=== PATIENT | male | born 1985 | race Caucasian/White ===

== ENCOUNTER 2017-09-27 18:12 | Emergency (ER) | payer OTHER, MEDICAID, SELFPAY ==
[2017-09-27 18:15] VITALS: BP 158/96; PULSE 74; RESP 16; TEMP 36.9; O2SAT 100; BMI 20.3
--- NOTE | 2017-09-27 19:37 | ED_ITS ---
HPI - Back Pain/Injury <TODD Morse - Last Filed: 09/27/17 21:55> General Chief Complaint: Back Pain/Injury Stated Complaint: LOWER BACK PAIN, RADIATING DOWN LEGS Time Seen by Provider: 09/27/17 19:19 Source: patient Mode of arrival: ambulatory Limitations: no limitations History of Present Illness HPI Narrative: 32-year-old male here for complaint of having pain into his left lumbar region over the past week. He denies any trauma to the area. He reports that he woke up with the pain 1 day after he went hiking 1 day. He denies any particular incident where he felt the back pain started. He is ambulatory into the emergency room. He denies any loss of bladder or bowel control. He denies any other concerns or complaints at this time. Increased pain with motion of the lower back. Decreased pain with relaxation. He reports that the pain radiates into his left buttocks and left thigh MD Complaint: back pain Related Data Previous Rx's Medication Instructions Recorded azithromycin [Zithromax] 250 mg PO SEE INSTRUCTIONS #6 tab 02/17/16 benzonatate [Tessalon Perles] 100 mg PO BID PRN #20 cap 02/17/16 cyclobenzaprine 10 mg PO TID PRN #15 tab 09/27/17 prednisone 40 mg PO DAILY #8 tab 09/27/17 Allergies Allergy/AdvReac Type Severity Reaction Status Date / Time No Known Drug Allergies Allergy Verified 09/27/17 18:15 Review of Systems <TODD Morse - Last Filed: 09/27/17 21:55> Constitutional Denies chills, Denies fever(s), Denies lethargy and Denies weakness Eyes Denies change in vision, Denies eye discharge, Denies irritation and Denies loss of vision ENT Ears, Nose, Mouth, and Throat: Denies change in voice, Denies neck pain and Denies sore throat Cardiovascular Denies chest pain, Denies irregular heart rhythm, Denies lightheadedness, Denies palpitations, Denies dyspnea, Denies dyspnea on exertion and Denies orthopnea Respiratory Denies cough, Denies dyspnea, Denies dyspnea on exertion and Denies wheezing Genitourinary Denies hematuria, Denies flank pain, Denies urinary incontinence and Denies urinary urgency Musculoskeletal Denies neck pain Comments: Lower back pain Integumentary/Breasts Denies pruritus, Denies erythema, Denies rash and Denies wounds Neurologic Denies confusion, Denies loss of vision and Denies weakness Psychiatric Denies anxiety, Denies confusion, Denies depression, Denies homicidal ideation and Denies suicidal ideation Endocrine Denies palpitations Hematologic/Lymphatic Denies easy bruising Allergic/Immunologic Denies wheezing Exam <TODD Morse - Last Filed: 09/27/17 21:55> Initial Vital Signs Initial Vital Signs: Vital Signs Temperature 98.4 F 09/27/17 18:15 Pulse Rate 74 09/27/17 18:15 Respiratory Rate 16 09/27/17 18:15 Blood Pressure 158/96 H 09/27/17 18:15 Pulse Oximetry 100 09/27/17 18:15 Const General: cooperative and well developed Nutritional Appearance: well nourished Orientation: alert, awake, oriented x3 and not confused HENMT Mouth: oral mucosae normal and moist mucous membranes Eyes Conjunctivae: conjunctivae normal Sclera: sclerae normal Pupils: PERRL EOM: EOM intact bilaterally Resp Effort & Inspection: normal respiratory effort, able to speak in complete sentences, no respiratory distress and no use of accessory muscles Auscultation: clear to auscultation bilaterally, no rales, no rhonchi and no wheezes Cardio Rate: regular rate Rhythm: regular rhythm Heart Sounds: no click, no gallops, no murmurs and no rubs Pulses: normal peripheral pulses Back/Spine/Pelvis Other: Tenderness to the paraspinals of the lumbar spine with muscle spasm. Pain radiates into the left buttocks. Distal sensation is intact. Distal range of motion is intact. Distal pulses are intact. Skin General: no rashes or lesions noted, No jaundice and No petechiae Neuro General: alert, oriented x3, gait normal and no focal motor deficits Speech: speech normal Motor: muscle tone normal throughout Sensory Exam: no sensory deficits noted <Nathan Soni DO - Last Filed: 09/27/17 22:16> Initial Vital Signs Initial Vital Signs: Vital Signs Temperature 98.4 F 09/27/17 18:15 Pulse Rate 74 18 18:15 Respiratory Rate 16 09/27/17 18:15 Blood Pressure 158/96 H 09/27/17 18:15 Pulse Oximetry 100 09/27/17 18:15 Course <Naveed FisherTODD - Last Filed: 09/27/17 21:55> Vital Signs - 8 hr 09/27/17 18:15 Temperature 98.4 F Pulse Rate 74 Respiratory Rate 16 Blood Pressure 158/96 H Pulse Oximetry 100 <Nathan Soni - Last Filed: 09/27/17 22:16> Vital Signs - 8 hr 09/27/17 18:15 Temperature 98.4 F Pulse Rate 74 Respiratory Rate 16 Blood Pressure 158/96 H Pulse Oximetry 100 MDM - Back Pain/Injury <Naveed FisherTODD - Last Filed: 09/27/17 21:55> MDM Narrative Medical decision making narrative: Signs and symptoms presents as acute lumbar strain with sciatica. He is prescribed prednisone and cyclobenzaprine. Gentle range of motion to painful areas not keep muscles loose. Rest area. Work note provided for the next couple days to rest. Follow up with primary care provider next week for re-evaluation. For any worsening symptoms return to the emergency room Discharge Plan Departure Patient Disposition: Home, Self-Care Clinical Impression: Strain of lumbar region Discharge Date/Time: 09/27/17 19:47 Interventions: ED Discharge Assessment Last Done: 09/27/17 19:47 Instructions: DI for Low Back Pain, DI for Sciatica Activity Restrictions/Additional Instructions: Signs and symptoms presents as acute back strain with sciatica. Use over-the- counter ibuprofen as needed for any discomfort. Cyclobenzaprine muscle relaxers prescribed help keep muscles lose use as directed. No driving while on the cyclobenzaprine as a can make you drowsy. Short course of prednisone as prescribed for anti-inflammatory effects use as directed. Gentle range of motion to painful areas to keep muscles loose. Follow up with her primary care provider next week for re-evaluation. For any worsening symptoms return to the emergency room. Prescriptions: New cyclobenzaprine 10 mg tablet 10 mg PO TID PRN (Reason: muscle spasm) Qty: 15 RF: 0 prednisone 20 mg tablet 40 mg PO DAILY Qty: 8 RF: 0 No Action azithromycin [Zithromax] 250 MG tablet 250 mg PO SEE INSTRUCTIONS Qty: 6 RF: 0 benzonatate [Tessalon Perles] 100 MG capsule 100 mg PO BID PRNQty: 20 RF: 1 Referrals: [facility] [Provider Group] Stand Alone Forms: Work/School Restrictions <Nathan Soni, DO - Last Filed: 09/27/17 22:16> Cosign ED Attending Daquan Attestation: I was available for consultation during this patient's emergency department encounter
== END 2017-09-27 19:47 | disposition home or self-care (01) ==
PROVIDERS: Emergency Provider Nurse Practitioner Family
DX: M54.5 Low back pain (principal)
CPT/HCPCS: 99282